=== PATIENT | male | born 2000 | race Caucasian/White ===

== ENCOUNTER → 2020-04-28 | Outpatient (CLI) | payer BC ==
[~2020-04-28] MED LIST: IBUPROFEN; OSLT75C PO; TYLENOL
--- NOTE | 2020-04-28 10:30 | Diagnostic Imaging Report ---
INDICATION: Swallowed retainer. TIME OF EXAM: 10:22 AM No prior studies are available for comparison. Heart size is normal. Lungs are clear. Pulmonary vascularity is normal. No infiltrates are seen. There is no effusion or pneumothorax. No radiopaque foreign bodies are detected. IMPRESSION: No acute abnormality is detected. Dictated by: Dictated on workstation # [id number]
== END ==
LOC: RAD 09:55
PROVIDERS: ATTEND Nurse Practitioner Family
DX: T18.9XXD Foreign body of alimentary tract, part unspecified, subsequent encounter (principal)
CPT/HCPCS: 71046

== ENCOUNTER 2021-04-07 05:33 | Outpatient (RCR) | payer BC ==
[~2021-04-07] VITALS: Ht 182.9 cm; Wt 84.0 kg
== END 2021-04-07 09:20 | disposition home or self-care (01) ==
LOC: PREOP 05:33
PROVIDERS: ATTEND Surgery
DX: Z01.812 Encounter for preprocedural laboratory examination (principal); R13.10 Dysphagia, unspecified; Z20.822 Contact with and (suspected) exposure to COVID-19
CPT/HCPCS: 87635

== ENCOUNTER 2021-04-08 10:00 | Day surgery (SDC) | payer BC ==
[~2021-04-08] VITALS: Ht 183 cm; Wt 84.0 kg
[2021-04-08] MEDS ORDERED: LACTATED RINGERS 1,000 ML IV STA (10:14)
[2021-04-08] MEDS ORDERED: HURRICAINE EXT TUBE (BENZOCAINE) XX PRN (10:15)
[2021-04-08 10:27] VITALS: BP 132/85
[2021-04-08] MEDS ORDERED: proPOfol 200 MG/20 ML (DIPRIVAN) VIAL IV ONE (11:00)
[2021-04-08] MEDS ORDERED: MIDAZOLAM 2 MG/2 ML (VERSED) VIAL ONE (11:01)
[2021-04-08] MEDS ORDERED: HURRICAINE EXT TUBE (BENZOCAINE) ONE (11:05)
--- NOTE | 2021-04-08 11:08 | Progress Note-Pre Operative ---
Pre-Operative Progress Note H&P Reviewed The H&P was reviewed, patient examined and no changes noted. Time Seen by Provider: 11:05 Date H&P Reviewed: April 08, 2021 Time H&P Reviewed: 11:05 Pre-Operative Diagnosis: Dysphagia ALEXANDER MCQUEEN DO April 08, 2021 11:08
[2021-04-08 11:30] VITALS: BP 105/57
--- NOTE | 2021-04-08 11:34 | Progress Note-Post Operative ---
Post-Operative Progess Note Surgeon (s)/Animal Pathologist (s) Surgeon ALEXANDER MCQUEEN DO Animal Pathologist: none Pre-Operative Diagnosis Dysphagia Post-Operative Diagnosis same plus Mild esophagitis Gastritis Small hiatal hernia Procedure & Operative Findings Date of Procedure 04/08/21 Procedure Performed/Findings PROCEDURE NOTE: After informed consent was obtained, the patient was brought to the endoscopy suite, placed in bed in left lateral decubitus position. He was administered IV sedation by the SCHOOL BUS DRIVER/MECHANIC who then monitored his vitals the entire time, heart rate, blood pressure and pulse ox and the scope was inserted down the mouth through the esophagus into the stomach. On the way down, noted some mild esophagitis, took a picture, pushed into the stomach, pushed past the antrum into the duodenum. Duodenum looked good. Pulled back and did a biopsy of antrum, then retroflexed the scope, saw a small hiatal hernia, took a picture of this and then pulled the scope into the GE junctionand then did a biopsy of the GE junction. Pushed the scope back into the stomach, suctioned all the air out of the stomach and then pulled the scope up the esophagus, took some pictures in the esophagus. There were no ulcers and no strictures. At this point pulled the scope up the esophagus and out the mouth. The patient tolerated the procedure, and he was recovered in the endoscopy suite. Anesthesia Type IV sedation by [employer] DRIVER/MECHANIC Estimated Blood Loss Estimated blood loss (mL): scant Specimens/Packing Specimens Removed antral bx GE jxn bx ALEXANDER MCQUEEN DO April 08, 2021 11:34
[2021-04-08 11:35] VITALS: BP 114/62
--- NOTE | 2021-04-08 11:35 | Endoscopy Discharge Instruct ---
Endo Procedure/Findings Findings 1.: Gastritis 2.: Hiatal Hernia Discharge Instructions - Activity: You might feel a little sleepy until tomorrow. This is due to the medicine you received to relax you. Until tomorrow, you should: NOT drive a car, operate machinery or power tools. NOT drink any alcoholic beverages. NOT make any important decisions or sign importortant papers. Do not return to work until tomorrow, unless otherwise instructed. Resume previous activities tomorrow. Diet: Start by taking liquids. If you tolerate liquids, advance to solid food. 1.: EGD in 3 years Notify Physician - If you experience excessive bleeding, unusual abdominal pain, fever, or chest pain, contact your doctor immediately. ALEXANDER MCQUEEN DO April 08, 2021 11:35
--- NOTE | 2021-04-08 12:45 | Anesthesia-General Post-Op ---
MAC Patient Condition Mental Status/LOC: Same as Preop Cardiovascular: Satisfactory Nausea/Vomiting: Absent Respiratory: Satisfactory Pain: Controlled Complications: Absent Post Op Complications Complications None Follow Up Care/Instructions Patient Instructions None needed. Anesthesiology Discharge Order Discharge Order Patient is doing well, no complaints, stable vital signs, no apparent adverse anesthesia problems. No complications reported per nursing. WANDA WRIGHT CRNA April 08, 2021 12:45
== END 2021-04-08 12:00 | disposition home or self-care (01) ==
LOC: ENDO 10:00
PROVIDERS: ATTEND Surgery
DX: K29.50 Unspecified chronic gastritis without bleeding (principal); K20.90 Esophagitis, unspecified without bleeding; K44.9 Diaphragmatic hernia without obstruction or gangrene; Z20.822 Contact with and (suspected) exposure to COVID-19; Z79.899 Other long term (current) drug therapy; Z79.891 Long term (current) use of opiate analgesic; Z80.9 Family history of malignant neoplasm, unspecified; Z83.3 Family history of diabetes mellitus
CPT/HCPCS: 88305